=== PATIENT | male | born 1980 | race Caucasian/White ===

== ENCOUNTER 2018-08-08 05:35 | Day surgery (SDC) | payer OTHER ==
[~2018-08-08] VITALS: Ht 177.8 cm; Wt 64.0 kg
[~2018-08-08 05:35] MED LIST: ACETAMINOPHEN-1 EAC1 PO; ACID CONTROLLER10 MG PO; CINACALCET; KEFLEX500 MG PO; LISINOPRIL2.5 MG; LISINOPRIL5 MG; LOPRESSOR25 PO; NEPHROCAPS SOFT1 CAP; NORCO 5-325 TA1 EACH PO; PRINIVIL20 M1 PO; PROGRAF1 MG PO; SENSIPAR 30 MG30 MG PO; SENSIPAR90 MG PO; TUMS PO; VENTOLIN HFA 1818 GM INH; ZOCOR 20 MG TAB20 M1 PO; [UNRECOGNIZED DRUG - OTHER] PO
[2018-08-08 07:55] LABS: HEMATOCRIT 41.8 % (42.0-52.0); HEMOGLOBIN 14.4 gm/dL (14.0-18.0); MCH 32.9 pg (26.0-34.0); MCHC 34.6 g/dL (28.0-37.0); MCV 95.1 fL (80.0-100.0); RBC 4.39 mil/uL (4.50-6.00); RDW 13.8 % (10.5-14.5); WBC 9.2 thou/uL (4.0-11.0)
[2018-08-08 08:30] VITALS: BP 113/71
--- NOTE | 2018-08-08 08:32 | EKG ---
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: gissell : 1980 Requested By: Steve Oliveira Order Number: [id number] MD: Jackson Gayle Measurements Intervals [place] Rate: 75 P: 29 ME: 117 QRS: 56 QRSD: 95 T: 58 QT: 425 QTc: 475 Interpretive Statements Sinus rhythm Borderline short ME interval Compared to ECG 01/23/2015 09:12:18 No significant changes Electronically Signed On 08-08-2018 8:31:50 CAMP GUARD by Jackson Gayle [email or web address] ��������������������������������������������� <ELECTRONICALLY SIGNED> ���������������������������������������� By: Jacskon Gayle MD ��������������������������������������������� 08/08/18 0831 0 0 Jackson Gayle MD /MONIQUE
[2018-08-08 09:21] LABS: CALCIUM 8.8 mg/dL (8.5-10.1); CREATININE 6.5 mg/dL (0.7-1.3); POTASSIUM 4.5 mmol/L (3.5-5.1)
[2018-08-08 09:28] LABS: ALBUMIN 3.6 g/dL (3.4-5.0); TOTAL BILIRUBIN 0.5 mg/dL (<0.1-1.0); TOTAL PROTEIN 7.4 g/dL (6.4-8.2)
[2018-08-08 16:08] LABS: ALBUMIN 3.6 g/dL (3.4-5.0); MAGNESIUM 2.5 mg/dL (1.8-2.4)
--- NOTE | 2018-08-08 17:17 | NUR ---
ASSUMED CARE OF PT AT 16:46. ARRIVED TO ROOM VIA CART IN STABLE CONDITION AND MOM AT BEDSIDE. ASSESSMENT COMPLETED AND CHARTED. A&O,X4. C/O SORE THROAT AND NECK PAIN S/P PARATHYROIDECTOMY. STERISTRIPS INTACT AND JACLYN DRAIN IN PLACE. REFUSED PAIN MEDS AT THIS TIME. DENIES N/V/D. LAST BM YESTERDAY BEFORE SURGERY. NO OTHER SKIN CONCERNS. WILL CONTINUE TO MONITOR.
[2018-08-08 17:29] VITALS: BP 172/84
[2018-08-08 19:33] VITALS: BP 147/92
--- NOTE | 2018-08-08 20:05 | NUR ---
PT REQUESTED IV PAIN MEDS, GIVEN ORDERED. PAIN 2/10 AT THIS TIME. PT WAS NOT ABLE TO EAT DINNER DUE TO SORE THROAT, TOLERATED CLEARS WELL. NO N/V/D. JACLYN DRAIN EMPTIED AT END OF SHIFT - 40 ML TOTAL NOTED, PINK-RED SANGINOUS DRAINAGE NOTED. DRESSING INTACT, CLEAN AND DRY. NO OTHER CONCERNS AT THE MOMENT.
--- NOTE | 2018-08-09 00:22 | NUR ---
NO S/S OF HYPOCALCEMIA, TOOK TUMS TONIGHT AFTER EXPLAINING IMPORTANCE OF IT, PT REFUSED METROPOLOL EVEN THOUGH HIS BP IS IN THE 140 SBP, JACLYN PATENT, STERISTRIPS TO NECK CDI. MONITORED.
[2018-08-09 03:10] VITALS: BP 118/70
--- NOTE | 2018-08-09 04:53 | NUR ---
PT RESTLESS A LITTLE BIT, RELAXED WHEN ENC TO AMBULATE AND SIT IN THE CHAIR, PT STEADY ON HIS LEGS, MONITORED FOR HYPO/HYPERCALCEMIA, SO FAR NO S/S NOTED, EVERY 8 HR CALCIUM MONITORING. STERISTRIPS TO ANT NECK INTACT, JACLYN INTACT, PAIN CONTROLLED BY NORCO AND PT IS ABLE TO SWALLOW IT WITH NO PROBLEM, NO NAUSEA NOTED, VOIDING GOOD, NO NUMBNESS/TINGLING, HOURLY ROUNDING, MONITORED.
[2018-08-09 08:05] VITALS: BP 124/80
[2018-08-09] MEDS ORDERED: TUMS (15:39)
--- NOTE | 2018-08-09 16:10 | NUR ---
PT FEELING WELL. NO SYMPTOMS OF LOW CALCIUM. CA GLUCONATE GIVEN IV THIS AM PER DR. MARLOW. PT SEEN BY DR. DANIEL THIS AM. DR. MARLOW JUST CALLED AND DISCHARGE ORDER GIVEN. PT WILL BE FOLLOWING UP IN DIALYSIS CLINIC IN AM RE CALCIUM. DISCHARGING PT AT THIS TIME.
--- NOTE | 2018-08-09 16:16 | O ---
[facility] [place] [address] OPERATIVE REPORT Name: SUMEET HUMPHRIES Room #: 426-P [facility] M.R.#: [id number] Admission: 08/08/18 ������������������ Attend Phys: Steve Oliveira MD Discharge: ������������������ Date of : 78 Report #: [id number] THIS REPORT FOR: //name// CC: Ramu Mora MD DATE OF SERVICE: 08/08/2018 SURGEON: Steve Oliveira MD PREOPERATIVE DIAGNOSES: 1. Secondary hyperparathyroidism. 2. Renal failure. POSTOPERATIVE DIAGNOSES: 1. Secondary hyperparathyroidism. 2. Renal failure. OPERATION PERFORMED: Parathyroidectomy. INDICATIONS: The patient is a 38-year-old gentleman with secondary hyperparathyroidism. He has a history of end-stage renal failure and anuria. The patient had a renal transplant, which failed. He has been difficult to manage on Sensipar. He was referred for consideration of surgical options for secondary hyperparathyroidism with PTH running in the 1300 range. 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 DESCRIPTION OF PROCEDURE: The patient was brought to the operating room and placed supine on the operating table. After adequate general anesthesia was achieved via endotracheal intubation with a nerve integrity monitoring endotracheal tube, the neck was extended. A shoulder roll was placed. Planned incision was marked out in a relaxed skin tension line above the manubrium and injected with 1% Xylocaine with 1:100,000 epinephrine. As a separate part of the procedure, the Xomed nerve integrity monitor was applied to the electrodes from the endotracheal tube. Needle electrodes were placed in the soft tissue overlying the sternum and contralateral shoulder. Electrode resistance and impedance was measured and found to be acceptable. Threshold and stimulus intensity parameters were set and the patient was monitored for the entirety of the case of approximately 2 hours in order to locate and protect the recurrent laryngeal nerve. Procedure began with an incision through skin and subcutaneous tissue and platysma. Subplatysmal flaps were elevated superiorly and inferiorly. [address] [address] OPERATIVE REPORT Name: SUMEET HUMPHRIES Room #: 426-P [facility] M..#: [id number] Admission: 08/08/18 ������������������ Attend Phys: Steve Oliveira MD Discharge: ������������������ Date of : 78 Report #: [id number] Dissection was made down to the strap muscles. These were divided vertically in the midline and retracted laterally. Dissection began on the patient's left side beginning in the left inferior. 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 This was dissected free. The afferent and efferent vessels clamped between Ligaclips and divided. This was delivered off the field as specimen in saline for frozen section. Dissection then began superior on the left. Careful dissection along the cricothyroid joint did not reveal the recurrent nerve in its usual anatomic position and no parathyroid tissue was noted. Attention was then turned to the right side beginning inferiorly. The inferior parathyroid was found running with the inferior thyroid artery attached to the capsule of the thyroid gland. This was dissected easily and again delivered off field as specimen to pathology for confirmation. Dissection then continued superiorly. The middle thyroid vein was taken down between Ligaclips and divided. The gland was rolled up on to the trachea. Dissection in the tracheoesophageal groove revealed the recurrent nerve. This was tracked superiorly to the cricothyroid joint. Posterior to this, there was a parathyroid adenoma along the esophagus. This was again dissected and afferent and efferent vessels clipped between Ligaclips and divided. These three were sent off to pathology for confirmation, each of them showing a hypercellular parathyroid. While this was occurring, the first iPTH was drawn. Baseline with a draw before surgery was 1993. After removal of the first left inferior parathyroid, this came down to 1044. After removal of the second parathyroid right inferior, this came down to 310. After removal of the superior parathyroid on the right, this came down to 249. While this was going, on a diligent search was made on the left side for the remaining fourth parathyroid. This began at the cricothyroid joint. Dissection was then done retroesophageal. The carotid sheath was opened and dissection began superiorly to inferior. Dissection then began inferior along the tracheoesophageal groove. Two biopsies were taken of masses, one returned a lymph node, the second mass of fat, but no fourth parathyroid was identified. As the patient's third iPTH came down so dramatically, it was elected to conclude the procedure at this point. Hemostasis was assured with bipolar cautery and clip ligature. Powdered Nathaniel was placed in the opposite each cricothyroid joint. A 10-German Ronak drain was placed through a separate stab incision and curled into the wound and connected to bulb suction. This was sutured in place with 2-0 silk. The strap muscles were then closed vertically in the midline with interrupted 3-0 Vicryl. A 3-0 Vicryl was used to close the platysma layer, 4-0 Vicryl deep dermal sutures and a 5-0 running subcuticular Prolene on skin. Mastisol and Steri-Strips applied. A fifth iPTH was drawn, but is pending at the time of dictation. The patient will be watched overnight for monitoring and assuming stability he may be discharged in the morning with plans to follow with me in 1 week for suture removal, 48 hours for drain removal. Written and verbal discharge instructions and emergency precautions have been given to his . Discharge meds include cephalexin 1 tablet b.i.d. for 10 days, hydrocodone/acetaminophen 7.5/325 one to [facility] [employer] [address] [place] [address] OPERATIVE REPORT Name: SUMEET HUMPHRIES Room #: 426-P [facility] M.R.#: [id number] Admission: 08/08/18 ������������������ Attend Phys: Steve Oliveira MD Discharge: ������������������ Date of : 78 Report #: [id number] two q. 4-6 hours p.r.n., Phenergan suppository 25 mg 1 per rectum q. 4-6 hours p.r.n. He is instructed on light activity and a soft diet. He is instructed on the signs and symptoms of hypocalcemia. The patient also understands that he may be in the hospital more than 24 hours depending if there is any evidence of hungry bone syndrome. ��������������������������������������������� <ELECTRONICALLY SIGNED> ���������������������������������������� By: Steve Oliveira MD ��������������������������������������������� 08/09/18 1616 1504 1531 Steve Oliveira MD /nt
[2018-08-09 16:27] VITALS: BP 124/80
--- NOTE | 2018-08-10 09:00 | HC ---
[facility] [place] [address] CONSULTATION Name: SUMEET HUMPHRIES Room #: DEP [facility] M..#: [id number] Admission: 08/08/18 ������������������ Attend Phys: Steve Oliveira MD Discharge: 08/09/18 ������������������ Date of : 78 Report #: [id number] THIS REPORT FOR: //name// CC: Steve Mora REASON FOR CONSULTATION: End-stage renal disease. REASON FOR PRESENTATION: Post-parathyroidectomy HISTORY OF PRESENT ILLNESS: End-stage renal disease, was maintained on hemodialysis every Monday, Monday and Monday. He has IgA nephropathy. He ended up being on dialysis for an extended period of time. He suffers from secondary hyperparathyroidism and was admitted yesterday to have parathyroidectomy. This was done. I am being consulted to manage his dialysis and his calcium-related issues. PAST MEDICAL HISTORY: 1. End-stage renal disease. 2. Hyperparathyroidism. 3. IgA nephropathy. 4. AV fistulas, multiple. FAMILY HISTORY: Significant for hypertension. MEDICATIONS: 1. Metoprolol. 2. Calcium carbonate. 3. Fosrenol SOCIAL HISTORY: He is disabled. No drug or alcohol abuse. ALLERGIES: AZITHROMYCIN. REVIEW OF SYSTEMS: GENERAL: No fever or chills. CARDIOVASCULAR: No chest pain or palpitation. PULMONARY: No cough or hemoptysis. GASTROINTESTINAL: No nausea or vomiting. GENITOURINARY: No frequency, no urgency. He still makes some urine. PHYSICAL EXAMINATION: GENERAL: Alert, oriented, in no apparent distress. VITAL SIGNS: Most recent blood pressure 124/80. Temperature 36.4. HEAD AND NECK: No jugular venous distention, no bruit, no thyromegaly. Scar of his parathyroid surgery anteriorly. CHEST: No crackles. [facility] [address] [place] [address] CONSULTATION Name: SUMEET HUMPHRIES Room #: DEP [facility]..#: [id number] Admission: 08/08/18 ������������������ Attend Phys: Steve Oliveira MD Discharge: 08/09/18 ������������������ Date of : 78 Report #: [id number] CARDIOVASCULAR: No rub. ABDOMEN: Soft, nontender. LOWER EXTREMITIES: No edema. UPPER EXTREMITIES: Left AV fistula. LABORATORY VALUES: Reviewed. Calcium is down to 7.4. ASSESSMENT, IMPRESSION AND PLAN: 1. End-stage renal disease. 2. Hyperparathyroidism: 3. Hypocalcemia. Plans for long-term calcium monitoring were discussed with the patient. He will receive calcium gluconate. We will initiate on calcium carbonate and calcitriol. I communicated this with the patient and his dialysis unit. We will monitor as an outpatient after initiation on calcitriol and Tums. ��������������������������������������������� <ELECTRONICALLY SIGNED> ���������������������������������������� By: Praful Cartagena MD ��������������������������������������������� 08/10/18 0900 0939 1002 Praful Cartagena MD /nt
--- NOTE | 2018-08-13 16:06 | PATH ---
[facility] [place] [address] PATHOLOGY RPT PROCEDURE Name: SUMEET HUMPHRIES ROD Room #: DEP [facility] M.R.#: [id number] ������������������ Admission: 08/08/18 ������������������ Date of : 78 Discharge: 08/09/18 Report #: [id number] Path Case #: [id number] [facility] Accession Number: [id number] . 01 Material submitted: . PART A: LEFT INFERIOR PARATHYROID - FS PART B: RIGHT INFERIOR PARATHYROID - FS PART C: RIGHT SUPERIOR PARATHYROID - FS PART D: LEFT SUPERIOR PARATHYROID RULE OUT 1 - FS PART E: LEFT SUPERIOR PARATHYROID RULE OUT 2 PARATHYROID #2 - FS PART F: REMNANT LEFT SUPERIOR PARATHYROID . 01 Clinical history: . Secondary hyperparathyroidism. . 02 Diagnosis: A. Parathyroid, left inferior parathyroid, parathyroidectomy: - Markedly hypercellular parathyroid tissue, 0.8 grams. . B. Parathyroid, right inferior parathyroid, parathyroidectomy: - Markedly hypercellular parathyroid tissue, 0.4 grams. . C. Parathyroid, right superior parathyroid, parathyroidectomy: - Markedly hypercellular parathyroid tissue, 0.5 grams. - Focal intraparenchymal hemorrhage present compatible with reactive changes. . D. Lymph node (one), left superior parathyroid R/O #1, biopsy: - Reactive lymph node. - No parathyroid tissue present. . E. Mature adipose tissue, left superior parathyroid R/O #2, biopsy: - Mature adipose tissue with focal lymphoid aggregate. - No parathyroid tissue present. . F. Remnant left superior parathyroid 1 and 2, biopsy: - Reactive lymph node and mature adipose tissue. (IUV:mali; 08/10/2018) QMS/08/10/2018 . 02 Comment: Special stain and immunohistochemical stains are performed on block C2. HMB45 (red) and S100 (red) are nonreactive within the pigmented cells identified amidst the parathyroid tissue. CD68 is reactive within the cells and is identified scattered throughout the parathyroid parenchyma. Iron stain shows 4+ iron present within the pigmented macrophages, compatible with hemosiderin laden macrophages. [address] [address] PATHOLOGY RPT PROCEDURE Name: SUMEET HUMPHRIES Room #: DEP [facility]..#: [id number] ������������������ Admission: 08/08/18 ������������������ Date of : 78 Discharge: 08/09/18 Report #: [id number] Path Case #: [id number] . CD45 and TTF-1 are performed on block E1. The cells identified amidst the fibroadipose tissue are nonreactive to TTF-1 (arguing against thyroid follicular cells), and are strongly reactive to CD45, compatible with lymphoid tissue. . There is no parathyroid tissue present within the tissue designated "left superior parathyroid rule out #1" or "left superior parathyroid rule out #2". (IUV:mali; 08/10/2018) . 02 Addendum: . This addendum is issued subsequent to receiving a properly controlled PTH immunohistochemical stain (performed at [facility]) on block E1. The stain is nonreactive amidst the cells identified in the fibroadipose tissue. This confirms lack of parathyroid tissue in the current specimen. . The originally rendered diagnosis remains unchanged. . (IUV:resident care provider; 08/13/2018) MBR/08/13/2018 Addendum Electronically Signed by Aleja Broussard MD, Pathologist . 02 Electronically signed: . Aleja Broussard MD, Pathologist NPI- [id number] . 03 Gross description: . A. Specimen A is received fresh from the OR labeled with the patient's name, and "left inferior parathyroid rule out", consists of a 0.8 gram oval red-castaneda tissue measuring 1.5 cm in greatest dimension. The capsule is inked black. Specimen is bisected and the charter representative section is submitted for frozen section as FSA1, this is subsequently submitted for permanent sections as A1. The unfrozen tissue is submitted for permanent sections only as A2. . B. Speciment B is received fresh from the OR labeled with the patient's name, and "right inferior parathyroid", consists of a 0.4 gram red-castaneda tissue measuring 1.0 cm in greatest dimension. The capsule is shiny and it is inked red. At this point, specimen is bisected and the charter representative section is submitted for frozen section as FSB1, this is subsequently submitted for permanent sections as B1. The unfrozen portion of the tissue is submitted for permanent sections only as B2. . C. Specimen C is received fresh from the OR labeled with the patient's name, and "right superior parathyroid", consists of a 0.5 gram oval red-castaneda tissue measuring 1.3 cm in greatest dimension. The capsule is shiny and red, this is inked green. The specimen is bisected and a [address] [address] PATHOLOGY RPT PROCEDURE Name: SUMEET HUMPHRIES Room #: DEP [facility]..#: [id number] ������������������ Admission: 08/08/18 ������������������ Date of : 78 Discharge: 08/09/18 Report #: [id number] Path Case #: [id number] charter representative portion of the specimen is submitted for frozen section as FSC1, this is subsequently submitted for permanent sections as C1. The unfrozen portion is submitted for permanent sections only as C2. . D. Specimen D is received fresh from the OR labeled with the patient's name, and "left superior parathyroid rule out #1", consists of a white-castaneda fragment of tissue measuring 0.3 cm. Submitted entirely for frozen section as FSD1, subsequently submitted for permanent sections as D1. . E. Specimen E is received fresh from the OR labeled with the patient's name, and "left superior parathyroid rule out #2", consists of a white-castaneda fragment of tissue measuring an aggregate of 0.8 cm. Submitted entirely for frozen section as FSE1, subsequently submitted for permanent sections as E1. . F. Specimen F is received in formalin labeled with the patient's name, and "remnant left superior parathyroid", consists of two fragments of tissue measuring 0.3 cm and 0.8 cm. These are submitted for permanent sections only as F1. . (IUV:resident care provider; 08/08/2018) . . FROZEN SECTION DIAGNOSIS (Aleja Broussard MD) . FSA1, left inferior parathyroid rule out, biopsy: - Hypercelluar parathyroid tissue present. . FSB1, right inferior parathyroid rule out, biopsy: - Hypercelluar parathyroid tissue present. . FSC1, right superior parathyroid rule out, biopsy: - Hypercelluar parathyroid tissue present. . FSD1, left superior parathyroid rule out #1, biopsy: - Lymphoid tissue. . FSE1, left superior parathyroid rule out #2, biopsy: - Interpretation limited by adipose tissue and fibrovascular tissue. - No parathyroid tissue on FS slides. . These findings are discussed with Dr. Steve Oliveira in OR1 at [facility] and a written report is placed in the patient's chart. . (IUV:resident care provider; 08/08/2018) . Frozen section performed at [facility], [address] [place] [address] PATHOLOGY RPT PROCEDURE Name: SUMEET HUMPHRIES ROD Room #: [facility] M.R.#: [id number] ������������������ Admission: 08/08/18 ������������������ Date of : 78 Discharge: 08/09/18 Report #: [id number] Path Case #: [id number] [place] [address]. /MBR . 02 Pathologist provided ICD-10: E21.3 . 02 CPT . 288188, 413299, 543998, 039199, 655381, 257383, R03689, W00374, 169347, 565794, 974986, 322643, 790388, 913266 Specimen Comment: A courtesy copy of this report has been sent to Specimen Comment: [phone], . Specimen Comment: Report sent to and Specimen Comment: A duplicate report has been generated due to demographic updates. Performed at: [address], [place], [place] [id number] MD Andre King MD Phone: [phone] Performed at: [address] [id number] MD Aleja Broussard MD Phone: [phone] Performed at: [address], [place], [place] [id number] MD Andre King MD Phone: [phone]
== END 2018-08-09 16:46 | disposition home or self-care (01) ==
LOC: 4E 05:35 → OR 05:35 → TBA 05:35 → OR 09:35 → EDSTATUS 09:55 → NUC 09:56 → EDSTATUS 14:25 → OR 14:26 → 4E 16:31 → ENTRNSPT 08-09 16:34 → OR 08-09 16:46
PROVIDERS: Anesthesiology; Otolaryngology Plastic Surgery within the Head & Neck
DX: N25.81 Secondary hyperparathyroidism of renal origin (principal); N19 Unspecified kidney failure; N02.8 Recurrent and persistent hematuria with other morphologic changes; I10 Essential (primary) hypertension; J45.909 Unspecified asthma, uncomplicated; K21.9 Gastro-esophageal reflux disease without esophagitis; F17.210 Nicotine dependence, cigarettes, uncomplicated; Z94.0 Kidney transplant status; Z82.49 Family history of ischemic heart disease and other diseases of the circulatory system; Z79.899 Other long term (current) drug therapy; Z88.8 Allergy status to other drugs, medicaments and biological substances; Z98.890 Other specified postprocedural states
CPT/HCPCS: 10783; 50010; 50101; 50331; 50386; 50417; 52190; 52220; 52225; 52287; 56524; 56526; 56528; 56668; 56760; 57006; 62110; 62900; 70005